=== PATIENT | male | born 1980 | race Caucasian/White ===

== ENCOUNTER 2018-01-28 06:15 | Day surgery (SDC) | payer OTHER, MEDICAID ==
[~2018-01-28] VITALS: Ht 160 cm; Wt 38.1 kg
[~2018-01-28 06:15] MED LIST: ALEN70TA48 PO; BUSP15 PO; DSS100 PO; FOLI1 PO; GABA-533 PO; LACT-90 PO; PHEN32.43 PO; PROT54LI PO; RINGERS SOLUTION,LACTATED 1,000 ML IV ONE
[2018-01-28] MEDS ORDERED: FentaNYL CITRATE-PF 100 MCG/2 ML VIAL IVP ONE (06:16)
[2018-01-28] MEDS ORDERED: ONDANSETRON HCL 4 MG/2 ML VIAL IVP ONE (06:16)
[2018-01-28] MEDS ORDERED: ROCURONIUM BROMIDE 10 MG/ML 5 ML VIAL IVP ONE (06:16)
[2018-01-28] MEDS ORDERED: PROPOFOL 1% 20 ML VIAL IVP ONE (06:16)
[2018-01-28] MEDS ORDERED: GLYCOPYRROLATE 0.2 MG/ML VIAL IM ONE (06:16)
[2018-01-28] MEDS ORDERED: METOCLOPRAMIDE HCL 5 MG/ML 2 ML VIAL IVP ONE (06:16)
[2018-01-28] MEDS ORDERED: DEXAMETHASONE SOD PHOS 4 MG/ML VIAL IVP ONE (06:16)
[2018-01-28] MEDS ORDERED: NEOSTIGMINE METHYLSULFATE 1 MG/ML 10 ML VIAL IVP ONE (06:16)
[2018-01-28] MEDS ORDERED: LIDOCAINE/PF 2% 5 ML VIAL IM ONE (06:16)
[2018-01-28] MEDS ORDERED: MIDAZOLAM HCL 2 MG/2 ML VIAL IVP ONE (06:16)
[2018-01-28] MEDS ORDERED: RINGERS SOLUTION,LACTATED 1,000 ML IV ONE (07:00)
[2018-01-28] MEDS ORDERED: AMPICILLIN SODIUM 1 GM/VIAL ONE (07:12)
[2018-01-28] MEDS ORDERED: FentaNYL CITRATE-PF 100 MCG/2 ML VIAL IVP PRN (11:00)
[2018-01-28] MEDS ORDERED: MEPERIDINE-PF 25 MG/ML VIAL IVP PRN (11:00)
[2018-01-28] MEDS ORDERED: HYDROmorphone 2 MG/ML SYRINGE IVP PRN (11:00)
[2018-01-28] MEDS ORDERED: OXYGEN THERAPY IH SCH (20:00)
== END 2018-01-28 12:25 | disposition home or self-care (01) ==
LOC: SURGERY 06:15
PROVIDERS: ATTEND Dentist General Practice
DX: K05.30 Chronic periodontitis, unspecified (principal); K03.6 Deposits [accretions] on teeth; M81.0 Age-related osteoporosis without current pathological fracture; K59.00 Constipation, unspecified; G40.802 Other epilepsy, not intractable, without status epilepticus; E46 Unspecified protein-calorie malnutrition; G80.8 Other cerebral palsy; H54.8 Legal blindness, as defined in USA; F72 Severe intellectual disabilities; Z68.1 Body mass index [BMI] 19.9 or less, adult; Z98.2 Presence of cerebrospinal fluid drainage device; Z79.891 Long term (current) use of opiate analgesic; Z98.890 Other specified postprocedural states; Z79.899 Other long term (current) drug therapy
CPT/HCPCS: 41899; 93005; J0290; J1100; J2250; J2405; J2704; J2765; J3010; J3490 ×3; J7120

== ENCOUNTER → 2019-01-20 | Outpatient (CLI) | payer MEDICAID ==
[~2019-01-20] MED LIST changes: +ALEN70TA10 PO; -ALEN70TA48 PO; -PHEN32.43 PO; +PHEN32.46 PO; -RINGERS SOLUTION,LACTATED 1,000 ML IV ONE
== END | disposition home or self-care (01) ==
LOC: RADPV 09:31
PROVIDERS: ATTEND Family Medicine
DX: M81.0 Age-related osteoporosis without current pathological fracture (principal)
CPT/HCPCS: 77080

== ENCOUNTER 2019-06-02 06:29 | Day surgery (SDC) | payer OTHER, MEDICAID ==
[~2019-06-02] VITALS: Ht 160 cm; Wt 35.0 kg
[~2019-06-02 06:29] MED LIST changes: +ASCO500 PO; +CALC-26 PO; +CHOL100018 PO; +GABA-531 PO; +MELA1TAB8 PO; +MULT-723 PO; +PHEN16.22 PO; -PHEN32.46 PO; +RINGERS SOLUTION,LACTATED 1,000 ML IV ONE; +SENN8.6T90 PO; +[UNRECOGNIZED DRUG - CODE] PO
[2019-06-02] MEDS ORDERED: DEXAMETHASONE SOD PHOS 4 MG/ML VIAL IVP ONE (06:30)
[2019-06-02] MEDS ORDERED: FentaNYL CITRATE-PF 100 MCG/2 ML VIAL IVP ONE (06:30)
[2019-06-02] MEDS ORDERED: EPHEDrine SULFATE 50 MG/ML VIAL IM ONE (06:30)
[2019-06-02] MEDS ORDERED: ONDANSETRON HCL 4 MG/2 ML VIAL IVP ONE (06:30)
[2019-06-02] MEDS ORDERED: PROPOFOL 1% 20 ML VIAL IVP ONE (06:30)
[2019-06-02] MEDS ORDERED: 0.9% SODIUM CHLORIDE 10 ML VIAL IVP ONE (06:30)
[2019-06-02] MEDS ORDERED: LIDOCAINE 1% 10 ML VIAL IM ONE (06:30)
[2019-06-02] MEDS ORDERED: SUCCINYLCHOLINE CHLORIDE 20 MG/ML 10 ML VIAL IVP ONE (06:30)
[2019-06-02] MEDS ORDERED: RINGERS SOLUTION,LACTATED 1,000 ML IV ONE (07:00)
[2019-06-02] MEDS ORDERED: AMPICILLIN SODIUM 1 GM/VIAL ONE ×2 (07:17)
[2019-06-02] MEDS ORDERED: SODIUM CHLORIDE 0.9% 100 ML ONE (07:18)
[2019-06-02 07:21] LABS: EOSINOPHILS % (AUTO) 8.3 % (1.0-6.0); HEMOGLOBIN 15.7 g/dL (13.5-17.5); LYMPHOCYTES # (AUTO) 2.3 K/uL (1.0-4.8); LYMPHOCYTES % (AUTO) 42.8 % (22.0-44.0); MEAN CORPUSCULAR HEMOGLOBIN 29.8 pg (26.0-34.0); MEAN CORPUSCULAR HGB CONC 32.8 G/dL (31.0-37.0); MEAN CORPUSCULAR VOLUME 91 fL (80-100); MONOCYTES # (AUTO) 0.3 K/uL (0.1-1.0); MONOCYTES % (AUTO) 6.5 % (2.0-9.0); NEUTROPHILS # (AUTO) 2.2 K/uL (1.8-7.7); NEUTROPHILS % (AUTO) 41.4 % (40.0-70.0); PLATELET COUNT (AUTO) 281 K/uL (150-450); RED BLOOD CELL COUNT(AUTO) 5.28 MIL/uL (4.50-5.90); RED CELL DISTRIBUTION WIDTH 13.5 % (11.5-14.5)
[2019-06-02 07:31] LABS: ANION GAP 7 mmol/L (8-16); CARBON DIOXIDE 29 mmol/L (22-29); CHLORIDE 103 mmol/L (98-107); CREATININE 0.83 mg/dL (0.60-1.30); GLOMERULAR FILTR. RATE CALC > 60 mL/min (>60); GLUCOSE,RANDOM 95 mg/dL (70-110); POTASSIUM 3.9 mmol/L (3.5-5.1); SODIUM SERUM 139 mmol/L (136-145); UREA NITROGEN, BLOOD 17 mg/dL (7-18)
[2019-06-02 07:34] LABS: PROTHROMBIN TIME 10.3 SEC (9.4-11.6)
[2019-06-02 07:37] LABS: ALANINE AMINOTRANSFERASE 67 U/L (12-78); ALBUMIN 3.4 g/dL (3.4-5.0); ALKALINE PHOSPHATASE 144 U/L (46-116); ASPARTATE AMINOTRANSFERASE 28 U/L (15-37); BILIRUBIN,TOTAL 0.3 mg/dL (0.1-1.0); TOTAL PROTEIN, SERUM 7.6 g/dL (6.4-8.2)
== END 2019-06-02 13:00 | disposition home or self-care (01) ==
LOC: SURGERY 06:29
PROVIDERS: ATTEND Dentist General Practice
DX: K02.9 Dental caries, unspecified (principal); K05.30 Chronic periodontitis, unspecified; G40.909 Epilepsy, unspecified, not intractable, without status epilepticus; G80.9 Cerebral palsy, unspecified; Z79.899 Other long term (current) drug therapy; Z79.01 Long term (current) use of anticoagulants
CPT/HCPCS: 36415; 41899; 71045; 80053; 85025; 85610; 85730; 93005; J0290; J0330; J1100; J2405; J2704; J3010; J3490 ×2; J7050; J7120

== ENCOUNTER → 2020-11-06 | Outpatient (CLI) | payer MEDICAID ==
[~2020-11-06] MED LIST changes: -ALEN70TA10 PO; +ALEN70TA65 PO; +CHOL-35 PO; -CHOL100018 PO; +DOCU-350 PO; -DSS100 PO; +FOLI-130 PO; -FOLI1 PO; +GABA-1181 PO; +GABA-1201 PO; -GABA-531 PO; -GABA-533 PO; +GARL500C2 PO; +LEVO-72 PO; +MELA1TAB52 PO; -MELA1TAB8 PO; +MULT-700 PO; -MULT-723 PO; -RINGERS SOLUTION,LACTATED 1,000 ML IV ONE; -[UNRECOGNIZED DRUG - CODE] PO
== END | disposition home or self-care (01) ==
LOC: RADMN 11:25
PROVIDERS: ATTEND Family Medicine
DX: R13.19 Other dysphagia (principal)
CPT/HCPCS: 74230; 92611

== ENCOUNTER 2023-03-05 06:25 | Day surgery (SDC) | payer OTHER, MEDICAID ==
[~2023-03-05] VITALS: Ht 157.5 cm; Wt 41.6 kg
[~2023-03-05 06:25] MED LIST changes: -CHOL-35 PO; +CHOL25TA4 PO; -DOCU-350 PO; +DOCU-412 PO; -FOLI-130 PO; -GABA-1181 PO; -GABA-1201 PO; +GABA600T10 PO; +LEVE500T20 PO; -LEVO-72 PO; +OMEG-114 PO; -PHEN16.22 PO; +PHEN30TA50 PO; +POLY17PO47 PO; +RINGERS SOLUTION,LACTATED 1,000 ML IV ONE; +SENN-376 PO
[2023-03-05] MEDS ORDERED: SUGAMMADEX SODIUM 200 MG/2 ML VIAL IVP ONE (06:26)
[2023-03-05] MEDS ORDERED: PROPOFOL 1% 20 ML VIAL IVP ONE (06:26)
[2023-03-05] MEDS ORDERED: METOCLOPRAMIDE HCL 5 MG/ML 2 ML VIAL IVP ONE (06:26)
[2023-03-05] MEDS ORDERED: ONDANSETRON HCL 4 MG/2 ML VIAL IVP ONE (06:26)
[2023-03-05 07:40] LABS: BASOPHILS % (AUTO) 0.5 % (0.0-2.0); EOSINOPHILS % (AUTO) 3.5 % (1.0-6.0); HEMATOCRIT 43.3 % (41-53); HEMOGLOBIN 14.4 g/dL (13.5-17.5); LYMPHOCYTES # (AUTO) 1.9 K/uL (1.0-4.8); LYMPHOCYTES % (AUTO) 16.7 % (22.0-44.0); MEAN CORPUSCULAR HEMOGLOBIN 30.3 pg (26.0-34.0); MEAN CORPUSCULAR HGB CONC 33.3 G/dL (31.0-37.0); MEAN CORPUSCULAR VOLUME 91 fL (80-100); MONOCYTES # (AUTO) 0.4 K/uL (0.1-1.0); MONOCYTES % (AUTO) 3.4 % (2.0-9.0); NEUTROPHILS # (AUTO) 8.7 K/uL (1.8-7.7); NEUTROPHILS % (AUTO) 75.9 % (40.0-70.0); PLATELET COUNT (AUTO) 324 K/uL (150-450); RED BLOOD CELL COUNT(AUTO) 4.76 MIL/uL (4.50-5.90); RED CELL DISTRIBUTION WIDTH 14.8 % (11.5-14.5); WHITE BLOOD COUNT (AUTO) 11.5 K/uL (4.5-11.0)
[2023-03-05 07:56] LABS: ANION GAP 8 mmol/L (8-16); CALCIUM, TOTAL 9.5 mg/dL (8.8-10.5); CARBON DIOXIDE 28 mmol/L (22-29); CHLORIDE 102 mmol/L (98-107); CREATININE 0.71 mg/dL (0.60-1.30); GLOMERULAR FILTR. RATE CALC > 60 mL/min (>60); GLUCOSE,RANDOM 104 mg/dL (70-110); POTASSIUM 3.6 mmol/L (3.5-5.1); SODIUM SERUM 138 mmol/L (136-145); UREA NITROGEN, BLOOD 12 mg/dL (7-18)
[2023-03-05 08:02] LABS: ALANINE AMINOTRANSFERASE 27 U/L (12-78); ALBUMIN 3.2 g/dL (3.4-5.0); ALKALINE PHOSPHATASE 153 U/L (46-116); ASPARTATE AMINOTRANSFERASE 19 U/L (15-37); BILIRUBIN,TOTAL 0.1 mg/dL (0.1-1.0); PROTHROMBIN TIME 10.6 SEC (9.4-11.6)
[2023-03-05] MEDS ORDERED: AMPICILLIN SODIUM 2 GM/NS 100 ML IV ONE (08:42)
[2023-03-05] MEDS ORDERED: RINGERS SOLUTION,LACTATED 1,000 ML IV ONE (09:05)
== END 2023-03-05 15:05 | disposition home or self-care (01) ==
LOC: SURGERY 06:25
PROVIDERS: ATTEND Dentist General Practice
DX: K02.9 Dental caries, unspecified (principal); K05.30 Chronic periodontitis, unspecified; R56.9 Unspecified convulsions; Z79.899 Other long term (current) drug therapy; Z98.890 Other specified postprocedural states; Z91.040 Latex allergy status
CPT/HCPCS: 80053; 85025; 85610; 85730; 36415; 93005; 71045; 41899; J0290; J2704; J2765; J2405; Q9967; J7120